=== PATIENT | female | born 2000 | race Caucasian/White ===

== ENCOUNTER 2025-07-19 08:12 | Outpatient (AMB) | payer SELFPAY ==
--- OUTSIDE RECORDS SUMMARY | 2025-06-02 05:20 | XMS_ITS ---
Author Organization [employer] Address [address] [facility] [address] [place] [address] Care Team Providers Care Community Board Member Name Role Phone REGINO MENDEZ Primary Care Provider Olamide Jennings Unavailable [phone] Allergies No Known Allergies REASON FOR VISIT Annual WATER PUMPING STATION ENGINEER Physical (NO VISIT TODAY) Medications Medication SIG [...] 06/02/2025 Encounters Encounter Location Date Provider Diagnosis [facility] [address] [place] [address] 06/02/2025 Olamide Hall Plan Of Treatment Next Appt Details Provider Name:Olamide hood, 06/24/2026 08:50:00 AM, [address] [facility], [facility] [address], [place], [address], Progress Notes * PREMA EDWARDSB:2000 (25 yo F)Acc No.[id number]:06/02/2025 Progress Note Patient: JONNY PACE Appointment Provider: Lolita Hall M.D. :2000 A ge:25 Y S ex:Female Date:06/02/2025 Address:[address] [place], [place] [id number] Pcp:REGINO MENDEZ Subjective: * Chief Complaints: * 1 . Annual WATER PUMPING STATION ENGINEER Physical (NO VISIT TODAY). * Medical History: M igraine, unspecified. * Die Repairer Trimmer Dies History: G ravida/ Para 0 /0. S [...] Electronic signature of Christina Hall MD on 07/19/2025 at 08:59 AM EDT Sign off status: Pending * Appointment Provider: Lolita Hall M.D. Date: 0 06/02/2025 Generated for Kayleigh abarca/Wm/Sarah on: 0 07/19/2025 08:59 AM EDT
--- OUTSIDE RECORDS SUMMARY | 2025-07-19 08:59 | XMS_ITS | Patient Health Record ---
Author Organization [facility] Address [address] [facility] [address] [place] [address] Care Team Providers Care Fuel Efficient Aircraft Designer Name Role Phone VANESSA, REGINO Primary Care Provider Olamide Jennings Unavailable [phone] Allergies No Known Allergies Results Component Value Reference Range Notes Urinalysis Reviewed date:06/23/2025 02:18:34 PM Interpretation: Performing Lab: Notes/Report: PH 5.0 PROTEIN Neg GLUCOSE Neg BLOOD Neg [id number] IGP, CtNg, Cultur e Under 30 Reviewed date:06/25/2025 12:36:52 PM Interpretation: Performing Lab:[facility]di, Sophie Ciara Masterson, [address], [place], Phone - [phone], Director - [facility] Notes/Report: Clinical Information:VAG/CERV [id number] LMP / Prev Treat...[id number]=[id number] Dates / Results....NEVER No. of containers..01 ThinPrep Vial DIAGNOSIS: NEGATIVE FOR IN TRAEPITHELIAL LESION OR MALIGNANCY. Specimen adequacy: Satisfact ory for evaluation. No endocervical component is identified. Clinician provided ICD10: Z01.419 Z72.51 Z11.3 Performed by: Myles patel, Ceramic Tile Installation Helper (ASCP) . . Note: The Pap smear is a screening test designed to aid in the detection of premalignant and malignant conditions of the uterine cervix. It is not a diagnostic procedure and should not be used as the sole means of detecting cervical cancer. Both false-positive and false-negative reports do occur. . Test Methodology: This liquid based ThinPrep(R) pap test was screened with the use of an image guided system. . The HPV DNA reflex criteria were not met with this specimen result therefore, no HPV testing was performed. . Chlamydia, Nuc. Acid Amp Negative Negative Gonococcus, Nuc. Acid Amp Negative Negative PDF Report Reviewed date:06/25/2025 12:36:36 PM Interpretation: Performing Lab:[facility], Sophie Masterson, [address], [place], Phone - [phone], Director - [facility] Notes/Report: Clinical Information:VAG/CERV [id number] LMP / Prev Treat...[id number] Dates / Results....NEVER No. of containers..01 ThinPrep Vial Reason For Referral No Information Medications Medication SIG (Take, Route, Frequency, Duration) Notes Start Date End Date Status Tri-Sprintec Active Vitamin D Active Multi Complete Activ e Tri-Sprintec 0.18/0.215/0.25 MG-35 MCG 1 tablet Orally Once a day; Duration: 90 days 06/23/2025 Active Social History Tobacco Use: Social History Observation [...] (Standard) Question Answer Notes Tobacco use: Nonsmoker Problems Problem Type SNOMED Code ICD Code Onset Dates Problem Status W/U Status Risk Notes Problem Migraine without aura (59335757) Migraine without aura, not intractable, with status migrainosus (G43.001) Active confirmed Vital Signs Temperature 97.9 degrees Fahrenheit 06/23/2025 Blood pressure diastolic 74 mm Hg 06/23/2025 Height 64 in 06/23/2025 Blood pressure systolic 100 mm Hg 06/23/2025 Weight 104 lbs 06/23/2025 BMI 17.85 kg/m2 06/23/2025 Encounters Encounter Location Date Provider Diagnosis [place] [address] [place] [address] 06/02/2025 Olamide Hall [place] [address] [place] [address] 06/23/2025 Olamide Hall Encounter for gynecological examination (general) (routine) without abnormal findings Z01.419 ; High risk heterosexual behavior Z72.51 ; Encounter for screening for infections with a predominantly sexual mode of transmission Z11.3 ; Encounter for surveillance of contraceptives, unspecified Z30.40 and Other specified counseling Z71.89 Assessments Encounter Date Diagnosis (ICD Code) Assessment Notes Treatment Notes Treatment Clinical Notes Section Notes 06/23/2025 Encounter for gynecological examination (general) (routine) without abnormal findings (ICD-10 - Z01.419) PAP TEST WAS OBTAINED. 06/23/2025 High risk heterosexual behavior (ICD-10 - Z72.51) 06/23/2025 Encounter for screening for infections with a predominantly sexual mode of transmission (ICD-10 - Z11.3) GC & CHLAMYDIA TESTS WITH PAP SMEAR. 06/23/2025 Encounter for surveillance of contraceptives, unspecified (ICD-10 - Z30.40) CONTINUE TRI-SPRINTEC. 06/23/2025 Other specified counseling (ICD-10 - Z71.89) SAFE SEX AND CAREFUL PARTNER SELECTION WERE DISCUSSED. Plan Of Treatment Next Appt Details Provider Name:Olamide hood, 06/24/2026 08:50:00 AM, [address] [facility], [address], [place], [address], Insurance Providers Payer Name Payer Address Payer Phone Subscriber Number Group Number Insured Name Patient Relationship to Insured Coverage Start Date Coverage End Date [facility] [address] [place] [address] [id number] JERRY JONNY Self - patient is the insured 5 Medical (General) History Medical History History ICD Code Iron deficiency E61.1 Migraine without aura, not intractable, with status migrainosus G43.001 Underweight R63.6 Surgical History Surgery Date(Month/Year) Nasal Surgery/Realignment 09/28/15
--- OUTSIDE RECORDS SUMMARY | 2025-07-19 08:59 | XMS_ITS | Encounter Summary ---
Author Organization [facility] Address [address] [place] [address] Phone Care Team Providers Care Preparation Supervisor Freezing Name Role Phone Misty Sims MD Primary Care Provider Unavailabl e Encounter Details Date Type Department Care Team (Late st Contact Info) Description 03/30/2018 [facility]counter [facility] [address] [address] Paige Mueller MD [address] [place] [address] Social History Tobacco Use Types Packs/Day Years Used Date Smoking Tobacco: Never Assessed Comments Unknown Sex and Gender Information Value Date Recorded Sex Assigned at Not on file Legal Sex Female 6:28 PM EDT Gender Identity Not on file Sexual Orientation Not on file documented as of this encounter Plan of Treatment Not on file documented as of this encounter Visit Diagnoses Not on filedocumented in this encounter Care Teams Preparation Supervisor Freezing Relationship Specialty Start Date End Date Misty Sims MD PCP - General 04/28/20 documented as of this encounter
--- OUTSIDE RECORDS SUMMARY | 2025-07-19 08:59 | XMS_ITS | Clinical Summary ---
Author Organization [facility] Address [address] [place] [address] Phone Care Team Providers Care Tint Layer Name Role Phone Misty Sims MD Primary Care Provider Unavailabl e Immunizations Immunization Administration Dates Next Due DTaP 05/05/2004, 0,1999, 999,1999 Hep B, ped/adol 02/01/2000,1999,1999 Hib (PRP-T) 07/26/2000, 0,1999, 999 IPV 05/05/2004, 0,1999, 999 MMR 05/04/2003,05/07/2000 Meningococcal Conj (Menactra) MCV4P 06/09/2015,0 05/12/2010 Pneumococcal Conjugate 01/10/2001,07/26/2000 Tdap 05/12/2010 Unknown Vaccine 06/18/2017,06/04/2017 Varicella 06/02/2009,05/07/2000 Family History Relation Name Status Comments Father Alive diverticulitis age: 57 Father's Brother Alive hepatitis B -C Maternal Grandfather d lung CA age: 67 diagnosed with Hypercholesteremia, MALIGNANT NEOPLASM NOS Maternal Grandmother lung CA age: 55 diagnosed with MALIGNANT NEOPLASM NOS Mother Alive healthy age: 50 Paternal Grandfather age: 97 Paternal Grandmother Alive diagnos ed with Hypertension, Hypercholesteremia Social History Tobacco Use Types Packs/Day Years Used Date Smoking Tobacco: Never Assessed Comments Unknown Sex and Gender Information Value Date Recorded Sex Assigned at Not on file Legal Sex Female 6:28 PM EDT Gender Identity Not on file Sexual Orientation Not on file Last Filed Vital Signs Vital Sign Reading Time Taken Comments Blood Pressure 112/72 05/13/2017 12:00 AM EDT Pulse 107 01/17/2015 12:00 AM EDT Temperature 36.8 C (98.3 F) 03/06/2016 12:00 AM EDT Respiratory Rate - - Oxygen Saturation 100% 01/17/2015 12:00 AM EDT Inhaled Oxygen Concentration - - Weight 61.9 kg (136 lb 6.4 oz) 05/13/2017 12:00 AM EDT Height 162.6 cm (5' 4 ) 05/13/2017 12:00 AM EDT Body Mass Index 23.41 05/13/2017 12:00 AM EDT Plan of Treatment Health Maintenance Due Date Last Done Comments HPV Vaccines (1 - 3-dose series) 2014 DTaP,Tdap,and Td Vaccines (7 - Td or Tdap) 05/12/2020 05/12/2010, 05/05/2004, 07/26/2000, Additional history exists Influenza Vaccines (#1) 2025 COVID-19 Vaccine ( season) 2025 Hepatitis B Vaccines Completed 02/01/2000, 1999, 1999 HIB Vaccines Completed 07/26/2000, 03/2000, 1999, Additional history exists Pneumococcal Vaccine Completed 01/10/2001, 07/26/20 00 MMR Vaccines Completed 05/04/2003, 05/07/2000 IPV Vaccines Completed 05/05/2004, 01/10, 1999, Additional history exists Varicella Vaccines Completed 06/02/2009, 05/07/2000 Meningococcal Vaccine Completed 06/09/2015, 010 Hepatitis A Vaccines Aged Out No long er eligible based on patient's age to complete this topic Men B Vaccine Aged Out No longer elig ible based on patient's age to complete this topic Procedures * Due to [place] state law, this organization might not be sharing sensitive test results. Procedure Name Priority Date/Time Associated Diagnosis Comments CHLAMYDIA AND GONORRHEA, AMPLIFIED Routine 05/11/2016 12:00 AM EDT from Last 3 Months or Most Recently Relevant to Health Maintenance Results * Due to [place] state law, this organization might not be sharing sensitive test results. * Chlamydia and Gonorrhoea, Amplified (05/11/2016 12:00 AM EDT) URINE GC AMP PROBE NEGATIVE C ONVERTED LABS Comment: No Neisseria Gonorrhoeae RNA detected in this patient's sample (REFERENCE RANGE/NORMAL VALUE: NOT DETECTED) NOTE: This test uses varnishing unit tool setter-mediated amplification method to detect rRNA from C.Trachomatis and N.Gonorrhoeae. A negative result does not preclude infection. In the case of a negative urine result, testing of an endocervical(female) or urethral(male) specimen is recommended if there is high clinical suspicion of infection. The performance characteristics of this test have not been evaluated in children. The Aptima Combo2 assay is not intended for the evaluation of suspected sexual abuse or for other medico-legal indications. The ordering provider should assess if the patient had consensual sex without risk of sexual abuse. Consult the [facility] Family [facility] if needed. Contact phone number . Therapeutic failure or success cannot be determined with the Aptima Combo2 assay since nucleic acid may persist following appropriate antimicrobial therapy. The Centers for Disease Control and Prevention (CDC) recommends confirmatory retesting using culture or a different nucleic acid amplification test when positive results occur, if indicated. URINE CHLAMYDIA AMP PROBE NEGATIVE CONVERTED LABS Comment: No Chlamydia Trachomatis RNA detected in this patient's sample (REFERENCE RANGE/NORMAL VALUE: NOT DETECTED) 05/11/2016 Narrative CONVERTED LABS - 05/11/2016 12:00 AM EDT screening neg Chasity Walls 05/10/2016 03:55:32 PM > Paige Mueller 05/11/2016 02:27:52 PM > Paige Mueller MD LAB MICROBIOLOGY - GENERAL TAWNYA JACOBSEN Final Result CONVERTED LABS from Last 3 Months or Most Recently Relevant to Health Maintenance Care Teams Tint Layer Relationship Specialty Start Date End Date Misty Sims MD PCP - General 04/28/20
== END 2025-07-19 08:15 | disposition home or self-care (01) ==
LOC: HO.HMGAL 08:12
PROVIDERS: Visit Provider Registered Nurse Emergency
DX: J30.89 Other allergic rhinitis (principal)
CPT/HCPCS: 95117; 95165

== ENCOUNTER 2025-09-22 12:58 | Outpatient (AMB) | payer SELFPAY ==
--- OUTSIDE RECORDS SUMMARY | 2025-06-02 04:20 | XMS_ITS ---
Author Organization [employer] Address [address] [facility] [address] [place] [address] Care Team Providers Care Sleep Scientist Name Role Phone REGINO MENDEZ Primary Care Provider Olamide Jennings Unavailable [phone] Allergies No Known Allergies REASON FOR VISIT Annual BOOTMAKER HAND Physical (NO VISIT TODAY) Medications Medication SIG [...] 06/02/2025 Encounters Encounter Location Date Provider Diagnosis [facility] [address] [place] [address] 06/02/2025 Olamide Hall Plan Of Treatment Next Appt Details Provider Name:Olamide hood, 06/24/2026 08:50:00 AM, [address] [facility], [facility] [address], [place], [address], Progress Notes * PREMA EDWARDSB:2000 (25 yo F)Acc No.[id number]:06/02/2025 Progress Note Patient: JONNY PACE Appointment Provider: Lolita Hall M.D. :2000 A ge:25 Y S ex:Female Date:06/02/2025 Address:[address] [place], [place] [id number] Pcp:REGINO MENDEZ Subjective: * Chief Complaints: * 1 . Annual BOOTMAKER HAND Physical (NO VISIT TODAY). * Medical History: M igraine, unspecified. * Curtain Drier History: G ravida/ Para 0 /0. S [...] Electronic signature of Christina Hall MD on 09/22/2025 at 03:32 PM EST Sign off status: Pending * Appointment Provider: Lolita Hall M.D. Date: 0 06/02/2025 Generated for Kayleigh abarca/Wm/Sarah on: 1 11/22/2024 03:32 PM EST
--- OUTSIDE RECORDS SUMMARY | 2025-09-22 15:33 | XMS_ITS | Patient Health Record ---
Author Organization [facility] Address [address] [facility] [address] [place] [address] Care Team Providers Care Protection Mgr Name Role Phone VANESSA, REGINO Primary Care Provider Olamide Jennings Unavailable [phone] Allergies No Known Allergies Results Component Value Reference Range Notes Urinalysis Reviewed date:06/23/2025 02:18:34 PM Interpretation: Performing Lab: Notes/Report: PH 5.0 PROTEIN Neg GLUCOSE Neg BLOOD Neg [id number] IGP, CtNg, Cultur e Under 30 Reviewed date:06/25/2025 12:36:52 PM Interpretation: Performing Lab:[facility], Sophie Ciara Masterson, [address], [place], Phone - [phone], Director - [facility] Notes/Report: Clinical Information:VAG/CERV [id number] LMP / Prev Treat...[id number] Dates / Results....NEVER No. of containers..01 ThinPrep Vial DIAGNOSIS: NEGATIVE FOR IN TRAEPITHELIAL LESION OR MALIGNANCY. Specimen adequacy: Satisfact ory for evaluation. No endocervical component is identified. Clinician provided ICD10: Z01.419 Z72.51 Z11.3 Performed by: Myles patel, Neuropsychiatrist (ASCP) . . Note: The Pap smear [...] Reviewed date:06/25/2025 12:36:36 PM Interpretation: Performing Lab:[facility], Sophie Masterson, [address], [place], Phone - [phone], Director - [facility] Notes/Report: Clinical Information:VAG/CERV [id number] LMP / Prev Treat...[id number] Dates / Results....NEVER No. of containers..01 ThinPrep [...] Status Risk Notes Problem Migraine without aura ([id number]) Migraine without aura, not intractable, with status migrainosus (G43.001) Active confirmed Vital Signs Temperature 97.9 degrees Fahrenheit 06/23/2025 Blood pressure diastolic 74 mm Hg 06/23/2025 Height 64 in 06/23/2025 Blood pressure systolic 100 mm Hg 06/23/2025 Weight 104 lbs 06/23/2025 BMI 17.85 kg/m2 06/23/2025 Encounters Encounter Location Date Provider Diagnosis [place] [email or web address] [place] [address] 06/02/2025 Olamide Hall [place] [email or web address] [place] [address] 06/23/2025 Olamide Hall Encounter for gynecological examination [...] Provider Name:Olamide hood, 06/24/2026 08:50:00 AM, [address] [facility], [address], [place], [address], Insurance Providers Payer Name Payer Address Payer Phone Subscriber Number Group Number Insured Name Patient Relationship to Insured Coverage Start Date Coverage End Date [facility] [address] [place] [address] [phone] [id number] JERRY JONNY Self - patient is the insured 5 Medical (General) History Medical History History ICD Code Iron deficiency E61.1 Migraine without aura, not intractable, with status migrainosus G43.001 Underweight R63.6 Surgical History Surgery Date(Month/Year) Nasal Surgery/Realignment 09/28/15
--- OUTSIDE RECORDS SUMMARY | 2025-09-22 15:33 | XMS_ITS | Clinical Summary ---
Author Organization [facility] Address [address] [place] [address] Phone Care Team Providers Care Coil Taper Name Role Phone Misty Sims MD Primary [...] exists Influenza Vaccines (#1) 2025 COVID-19 Vaccine (2024- season) 2025 Hepatitis B Vaccines Completed 02/01/2000, [...] complete this topic Procedures * Due to [place] state law, this organization might not be sharing sensitive test results. Procedure Name Priority Date/Time Associated Diagnosis Comments CHLAMYDIA AND GONORRHEA, AMPLIFIED Routine 05/11/2016 12:00 AM EDT from Last 3 Months or Most Recently Relevant to Health Maintenance Results * Due to [place] state law, this organization might not be sharing sensitive test results. * Chlamydia and Gonorrhoea, Amplified (05/11/2016 12:00 AM EDT) URINE GC AMP PROBE NEGATIVE C ONVERTED LABS Comment: No Neisseria Gonorrhoeae RNA detected in this patient's sample (REFERENCE RANGE/NORMAL VALUE: NOT DETECTED) NOTE: This test uses fire code inspector-mediated amplification method to detect rRNA from C.Trachomatis [...] risk of sexual abuse. Consult the [facility] if needed. Contact phone number . [...] Recently Relevant to Health Maintenance Care Teams Coil Taper Relationship Specialty Start Date End Date Misty Sims MD PCP - General 04/28/20
--- OUTSIDE RECORDS SUMMARY | 2025-09-22 15:33 | XMS_ITS | Encounter Summary ---
Author Organization [facility] Address [address] [place] [address] Phone Care Team Providers Care Mannequin Sander And Finisher Name Role Phone Misty Sims MD Primary Care Provider Unavailabl e Encounter Details Date Type Department Care Team (Late st Contact Info) Description 03/30/2018 [facility]counter [facility] [address] [address] Paige Mueller MD [address] [place] [address] Social History Tobacco Use Types Packs/Day Years [...] on filedocumented in this encounter Care Teams Mannequin Sander And Finisher Relationship Specialty Start Date End Date Misty Sims MD PCP - General 04/28/20 documented as of this encounter
== END 2025-09-22 12:58 | disposition home or self-care (01) ==
LOC: HO.HMGAL 12:58
PROVIDERS: Visit Provider Registered Nurse Emergency
DX: J30.89 Other allergic rhinitis (principal)
CPT/HCPCS: 95117; 95165

== ENCOUNTER 2025-10-27 11:05 | Outpatient (AMB) | payer OTHER, SELFPAY ==
--- OUTSIDE RECORDS SUMMARY | 2025-06-02 04:20 | XMS_ITS ---
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 Yes with Men only Last menstrual period 05/17/2025 AUDIT-C (Standard) Question Answer Notes Did you have a drink containing alcohol in the p ast year? No Points 0 Interpretation Negative Tobacco Control (Standard) Question Answer Notes Tobacco use: Nonsmoker Vital Signs Temperature 98.2 degrees Fahrenheit 06/02/20 25 Blood pressure systolic 96 mm Hg 06/02/20 25 Blood pressure diastolic 64 mm Hg 025 Height 64 in 06/02/2025 Weight 102 lbs 06/02/2025 BMI 17.51 kg/m2 06/02/2025 Encounters Encounter Location Date Provider Diagnosis [place] [address] [place] [address] 06/02/2025 Olamide Hall Plan Of Treatment Next Appt Details Provider Name:Olamide hood, 06/24/2026 08:50:00 AM, [address] [facility], [facility] [address], [place], [address], Progress Notes * PREMA EDWARDSB:2000 (25 yo F)Acc No.[id number]:06/02/2025 Progress Note Patient: JONNY PACE Appointment Provider: Lolita Hlal M.D. :2000 A ge:25 Y S ex:Female Date:06/02/2025 Address:[address] [place], [place] [id number] Pcp:REGINO MENDEZ Subjective: * Chief Complaints: * 1 . 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 * Medical History: M igraine, unspecified. * Heel Slugger History: G ravida/ Para 0 /0. S exual activity c urrently sexually active, with men. L ast Pap Smear: n ever. L MP and menses . B irth Control: o ral contraceptive pill. M enarche 1 2. * OB History: T otal pregnancies 0 . * Surgical History: n jono surgery 2014. * Hospitalization/Major Diagno stic Procedure: D enies Past Hospitalization. * Family History: M other: alive. F ather: alive. M aternal Grand Mother: , Lung ca. M aternal Grand Father: , lung ca. * Social History: T obacco Use: T obacco Control (Standard) T obacco use: N onsmoker S exual History: S exual History H ad sex in the past 12 months (vaginal, oral, or anal)? Y es w ith M en only L ast menstrual period 0 05/17/2025 D rugs/Alcohol: D rugs H ave you used drugs other than those for medical reasons in the past 12 months? N o M iscellaneous: C hildren: none. Home smoke detector use: smoke detectors, carbon monoxide detector. Housing: living with relatives. Marital status: single. Occupation: Nurse. D rug/Alcohol: A MARLEN-C (Standard) D id you have a drink containing alcohol in the past year? N o P oints 0 I nterpretation N egative * Medications: T aking Multi Complete , Taking Vitamin D , Taking Tri-Sprintec , Medication List reviewed and reconciled with the patient * Allergies: N .K.D.A. Objective: * Vitals: H t: 64 in, Wt:102lbs, BMI:17.51Index, BP:96/64mm Hg, Temp:98.2F. Assessment: Plan: * Treatment: * Images: Billing Information: * Visit Code: * Procedure Codes: * Electronic signature of Christina Hall MD on 10/27/2025 at 02:39 PM EST Sign off status: Pending * Appointment Provider: Lolita Hall M.D. Date: 0 06/02/2025 Generated for Kayleigh abarca/Wm/Sarah on: 1 12/28/2024 02:39 PM EST
--- OUTSIDE RECORDS SUMMARY | 2025-10-27 14:39 | XMS_ITS | Patient Health Record ---
Author Organization [facility] Address [address] [place] [address] Care Team Providers Care Regional Extension Service Specialist Name Role Phone VANESSA, REGINO Primary Care Provider Olamide Jennings Unavailable [phone] Allergies No Known Allergies Results Component Value Reference Range Notes Urinalysis Reviewed date:06/23/2025 02:18:34 PM Interpretation: Performing Lab: Notes/Report: PH 5.0 PROTEIN Neg GLUCOSE Neg BLOOD Neg [id number] IGP, CtNg, Cultur e Under 30 Reviewed date:06/25/2025 12:36:52 PM Interpretation: Performing Lab:[facility] [place], Sophie Ciara [address], [address], [place], Phone - [phone], Director - [facility] Notes/Report: Clinical Information:VAG/CERV [id number] LMP / Prev Treat...POD=[id number] Dates / Results....NEVER No. of containers..01 ThinPrep Vial DIAGNOSIS: NEGATIVE FOR IN TRAEPITHELIAL LESION OR MALIGNANCY. Specimen adequacy: Satisfact ory for evaluation. No endocervical component is identified. Clinician provided ICD10: Z01.419 Z72.51 Z11.3 Performed by: Myles patel, Bead Filler (ASCP) . . Note: The Pap smear [...] Reviewed date:06/25/2025 12:36:36 PM Interpretation: Performing Lab:[facility], Sophie Masterson, [address], [place], Phone - [phone], Director - [facility] Notes/Report: Clinical Information:VAG/CERV [id number] LMP / Prev Treat...DCW=[id number] Dates / Results....NEVER No. of containers..01 ThinPrep [...] Status Risk Notes Problem Migraine without aura ([id number]) Migraine without aura, not intractable, with status migrainosus (G43.001) Active confirmed Vital Signs Temperature 97.9 degrees Fahrenheit 06/23/2025 Blood pressure diastolic 74 mm Hg 06/23/2025 Height 64 in 06/23/2025 Blood pressure systolic 100 mm Hg 06/23/2025 Weight 104 lbs 06/23/2025 BMI 17.85 kg/m2 06/23/2025 Encounters Encounter Location Date Provider Diagnosis [place] [address] [place] [address] 06/02/2025 O[facility] [place] [address] [place] [address] 06/23/2025 Olamide Hall Encounter for gynecological examination [...] Provider Name:Olamide hood, 06/24/2026 08:50:00 AM, [address] [facility], [address], [place], [address], Insurance Providers Payer Name Payer Address Payer Phone Subscriber Number Group Number Insured Name Patient Relationship to Insured Coverage Start Date Coverage End Date [facility] [address] [place] [address] [id number] JERRY JONNY Self - patient is the insured 5 Medical (General) History Medical History History ICD Code Iron deficiency E61.1 Migraine without aura, not intractable, with status migrainosus G43.001 Underweight R63.6 Surgical History Surgery Date(Month/Year) Nasal Surgery/Realignment 09/28/15
--- OUTSIDE RECORDS SUMMARY | 2025-10-27 14:39 | XMS_ITS | Clinical Summary ---
Author Organization [facility] Address [address] [place] [address] Phone Care Team Providers Care [employer] Name Role Phone Misty Sims MD Primary [...] complete this topic Procedures * Due to [place] state law, this organization might not be sharing sensitive test results. Procedure Name Priority Date/Time Associated Diagnosis Comments CHLAMYDIA AND GONORRHEA, AMPLIFIED Routine 05/11/2016 12:00 AM EDT from Last 3 Months or Most Recently Relevant to Health Maintenance Results * Due to [place] state law, this organization might not be sharing sensitive test results. * Chlamydia and Gonorrhoea, Amplified (05/11/2016 12:00 AM EDT) URINE GC AMP PROBE NEGATIVE C ONVERTED LABS Comment: No Neisseria Gonorrhoeae RNA detected in this patient's sample (REFERENCE RANGE/NORMAL VALUE: NOT DETECTED) NOTE: This test uses tree shear operator-mediated amplification method to detect rRNA from C.Trachomatis [...] without risk of sexual abuse. Consult the [facility] if needed. Contact phone number . Therapeutic [...] Recently Relevant to Health Maintenance Care Teams [employer] Relationship Specialty Start Date End Date Misty Sims MD PCP - General 04/28/20
--- OUTSIDE RECORDS SUMMARY | 2025-10-27 14:39 | XMS_ITS | Encounter Summary ---
Author Organization [facility] Address [address] [place] [address] Phone Care Team Providers Care Regional Transportation Manager Name Role Phone Misty Sims MD Primary Care Provider Unavailabl e Encounter Details Date Type Department Care Team (Late st Contact Info) Description 03/30/2018 [facility]version [facility]counter [facility] [address] [address] Paige Mueller MD [address] [place] [address] Social History Tobacco Use Types Packs/Day Years [...] on filedocumented in this encounter Care Teams Regional Transportation Manager Relationship Specialty Start Date End Date Misty Sims MD PCP - General 04/28/20 documented as of this encounter
== END 2025-10-27 11:06 | disposition home or self-care (01) ==
LOC: HO.HMGAL 11:05
PROVIDERS: Visit Provider Registered Nurse Emergency
DX: J30.89 Other allergic rhinitis (principal)
CPT/HCPCS: 95117; 95165